=== PATIENT | male | born 1965 | race African-American/Black ===

== ENCOUNTER 2022-03-02 05:32 | Outpatient (CLI) | payer OTHER ==
[~2022-03-02] VITALS: Ht 182.9 cm; Wt 90.9 kg
[2022-03-02] MEDS ORDERED: HYDR25TA4 PO (09:36)
[2022-03-02] MEDS ORDERED: SIMV80TA21 PO (09:36)
[2022-03-02] MEDS ORDERED: LOSA100T57 PO (09:36)
[2022-03-02] MEDS ORDERED: METH-307 PO (09:36)
[2022-03-02] MEDS ORDERED: SERT-414 PO (09:36)
== END 2022-03-02 09:43 | disposition home or self-care (01) ==
LOC: PREOP 05:32
PROVIDERS: ATTEND Otolaryngology Otolaryngology/Facial Plastic Surgery
DX: Z01.818 Encounter for other preprocedural examination (principal)

== ENCOUNTER 2022-03-15 06:53 | Day surgery (SDC) | payer OTHER ==
[2022-03-15] VITALS (11 sets, daily range): BP systolic 132–153; BP diastolic 80–93
[~2022-03-15] VITALS: Ht 182.9 cm; Wt 90.9 kg
[~2022-03-15 06:53] MED LIST: HYDR25TA4 PO; LOSA100T57 PO; METH-307 PO; SERT-414 PO; SIMV80TA21 PO
[2022-03-15 07:37] LABS: BASOPHILS % (AUTO) 1 % (0-10); EOSINOPHILS # (AUTO) 0.1 10^3/uL (0.0-0.3); EOSINOPHILS % (AUTO) 3 % (0-10); HEMATOCRIT 39 % (40-54); HEMOGLOBIN 13.2 g/dL (13.3-17.7); LYMPHOCYTES # (AUTO) 1.9 10^3/uL (1.0-4.0); LYMPHOCYTES % (AUTO) 42 % (12-44); MEAN CORPUSCULAR HEMOGLOBIN 30 pg (25-34); MEAN CORPUSCULAR HGB CONC 34 g/dL (32-36); MEAN CORPUSCULAR VOLUME 89 fL (80-99); MEAN PLATELET VOLUME 9.3 fL (9.0-12.2); MONOCYTES # (AUTO) 0.5 10^3/uL (0.0-1.0); MONOCYTES % (AUTO) 12 % (0-12); NEUTROPHILS # (AUTO) 1.9 10^3/uL (1.8-7.8); NEUTROPHILS % (AUTO) 42 % (42-75); PLATELET COUNT 246 10^3/uL (130-400); WHITE BLOOD COUNT 4.5 10^3/uL (4.3-11.0)
[2022-03-15 07:50] LABS: POTASSIUM 3.7 MMOL/L (3.6-5.0)
[2022-03-15 07:51] LABS: CALCIUM 9.3 MG/DL (8.5-10.1)
[2022-03-15] MEDS: LACTATED RINGERS 1,000 ML IV PRN ×2 (07:53→10:40)
[2022-03-15] MEDS ORDERED: ONDANSETRON 4 MG/2 ML (SDV) Z0FRAN ONE (08:04)
[2022-03-15] MEDS ORDERED: LIDOCAINE PF 2% 5 ML (XYLOCAINE) VIAL ONE (08:04)
[2022-03-15] MEDS ORDERED: proPOfol 200 MG/20 ML (DIPRIVAN) VIAL IV ONE (08:04)
[2022-03-15] MEDS ORDERED: SEVOFLURANE (ULTANE) 15 ML INHAL SOLN ONE ×2 (08:04→09:32)
[2022-03-15] MEDS ORDERED: fentaNYL INJ 100 MCG/2 ML AMP ONE (08:05)
[2022-03-15] MEDS ORDERED: MIDAZOLAM 2 MG/2 ML (VERSED) VIAL ONE (08:05)
[2022-03-15] MEDS ORDERED: ROCURONIUM 50 MG/5 ML (ZEMURON) VIAL IV ONE (09:33)
[2022-03-15] MEDS ORDERED: SUGAMMADEX 500 MG/5 ML VIAL (BRIDION) IV ONE (09:38)
--- NOTE | 2022-03-15 09:50 | Progress Note-Pre Operative ---
Pre-Operative Progress Note H&P Reviewed The H&P was reviewed, patient examined and no changes noted. Date Seen by Provider: March 15, 2022 Time Seen by Provider: 09:00 Date H&P Reviewed: March 15, 2022 Time H&P Reviewed: 09:00 Pre-Operative Diagnosis: Nasopharyngeal Mass, Unilateral Right RUDDY SHANNON LOPEZ MD March 15, 2022 09:50
--- NOTE | 2022-03-15 09:51 | Progress Note-Post Operative ---
Post-Operative Progess Note Surgeon (s)/Aerodynamicist (s) Surgeon SHANNON LOPEZ MD Aerodynamicist n/a Pre-Operative Diagnosis Nasopharyngeal Mass, Unilateral Right RUDDY Post-Operative Diagnosis same Post-Op Procedure Note Date of Procedure: March 15, 2022 Name of Procedure Performed: Nasopharyngeal Biopsy, Right Myringotomy with T-Tube Description & Findings Description and Findings: n/a Anesthesia Type get Estimated Blood Loss minimal Packing none. Specimen(s) collected/removed nasopharyngeal tissue to pathology SHANNON LOPEZ MD March 15, 2022 09:51
[2022-03-15] MEDS ORDERED: PROMETHAZINE INJ 25 MG/ML (PHENERGAN) AMP IV PRN (10:00)
[2022-03-15] MEDS ORDERED: HYDROcodone/APAP 5 MG/325 MG (LORTAB) TAB PO PRN (10:00)
--- NOTE | 2022-03-15 10:04 | Anesthesia-General Post-Op ---
General Patient Condition Mental Status/LOC: Same as Preop Cardiovascular: Satisfactory Nausea/Vomiting: Absent Respiratory: Satisfactory Pain: Controlled Complications: Absent Post Op Complications Complications None Follow Up Care/Instructions Patient Instructions None needed. Anesthesia/Patient Condition Patient Condition Patient is doing well, no complaints, stable vital signs, no apparent adverse anesthesia problems. No complications reported per nursing. BELINDA CORNELIUS CRNA March 15, 2022 10:04
[2022-03-15] MEDS ORDERED: MEPERIDINE (DEMEROL) INJ 50 MG/ML IVP ONE (10:15)
[2022-03-15] MEDS ORDERED: fentaNYL INJ 100 MCG/2 ML AMP IVP ONE (10:15)
[2022-03-15] MEDS ORDERED: ONDANSETRON 4 MG/2 ML (SDV) Z0FRAN IVP PRN (10:15)
[2022-03-15] MEDS ORDERED: morphine INJ 10 MG/ML 1ML (SYR OR VIAL) IVP ONE (10:15)
== END 2022-03-15 12:00 ==
LOC: SDC 06:53
PROVIDERS: ATTEND Otolaryngology Otolaryngology/Facial Plastic Surgery
DX: R59.0 Localized enlarged lymph nodes (principal); H65.91 Unspecified nonsuppurative otitis media, right ear; H90.A31 Mixed conductive and sensorineural hearing loss, unilateral, right ear with restricted hearing on the contralateral side
CPT/HCPCS: 36415; 80048; 85025; 87081; 88305; 93005